=== PATIENT | female | born 1970 | race Caucasian/White ===

== ENCOUNTER 2018-01-24 17:36 | Emergency (ER) | payer SELFPAY ==
[2018-01-24] MEDS ORDERED: Acetaminophen/HYDROcodone 325-5 MG Tab PO ONE (18:14)
--- NOTE | 2018-01-24 18:29 | EDM.PDOC ---
<Sandra Membreno - Last Filed: 01/24/18 18:42> ED HPI GENERAL MEDICAL PROBLEM - General Chief Complaint: Bite:Animal, Insect Stated Complaint: SPIDER BITE ON FINGER Time Seen by Provider: 01/24/18 17:54 Source of Information: Reports: Patient History Limitations: Reports: No Limitations - History of Present Illness INITIAL COMMENTS - FREE TEXT/NARRATIVE: Patient is a 47-year-old female who presents to the ED with a left finger infection. Patient suspects she was bitten on the left index finger by a spider. She woke up Tuesday morning and noticed a pimple-like lesion on her finger. On Tuesday she reports her hand was red, swollen, and very painful. She went into the walk-in clinic and was initially prescribed cephalexin. On Tuesday , patient states the swelling had resolved, but was not improving as much as she had hoped. She again went into the clinic and had her antibiotic switched to Bactrim. Tonight she states that it is painful, sensitive to touch, and localized swelling and redness to just the finger between the dorsal PIP and MIP joint. Patient reports having GI upset with the cephalexin but that has resolved since stopping the medication. Denies fever. Left 2-Index finger Pain Score (Numeric/FACES): 6 - Related Data Allergies Allergy/AdvReac Type Severity Reaction Status Date / Time No Known Allergies Allergy Verified 01/24/18 17:47 Home Meds: Home Meds Doxycycline [Vibramycin] 100 mg PO BID #20 tab 01/24/18 [Rx] Naproxen 500 mg PO BID PRN 01/24/18 [History] Sulfamethoxazole/Trimethoprim [Bactrim 400-80 MG] 1 tab PO BID 01/24/18 [History ] Past Medical History - Past Health History Medical/Surgical History: Denies Medical/Surgical History [id number] APPLI[employer] History: Reports: Social & Family History - Family History Family Medical History: Noncontributory - Tobacco Use Smoking Status *Q: Never Smoker - Recreational Drug Use Recreational Drug Use: No ED ROS GENERAL - Review of Systems Constitutional: Denies: Fever, Chills, Malaise Musculoskeletal: Reports: Other (Left index finger pain and swelling) Skin: Reports: Erythema (left index finger), Lesions (left index finger between dorsal PIP and MIP joint) ED EXAM, ANIMAL BITE - Physical Exam Exam Limited By: No Limitations General Appearance: Alert, WD/WN, No Apparent Distress Extremities: Normal Capillary Refill, Increased Warmth (left index finger lesion ), Redness (left index finger lesion), Other (left index finger erythema and edema between PIP and MIP joint) Course - Vital Signs Last Recorded V/S: Last Vital Signs Temp 97.7 F 01/24/18 17:44 Pulse 80 01/24/18 17:44 Resp 17 01/24/18 17:44 BP 131/90 01/24/18 17:44 Pulse Ox 99 01/24/18 17:44 - Orders/Labs/Meds Meds: Medications Discontinued Medications Generic Name Dose Route Start Last Admin Trade Name Freq PRN Reason Stop Dose Admin Hydrocodone Bitart/Acetaminophen 1 tab 01/24/18 18:14 01/24/18 18:27 [place] 325-5 Mg PO 01/24/18 18:15 Not Given ONETIME ONE Departure - Departure Disposition: Home, Self-Care 01 Clinical Impression: Finger infection - Discharge Information Prescriptions: Doxycycline [Vibramycin] 100 mg PO BID #20 tab Instructions: Fingertip Infection Referrals: PCP,None [Primary Care Provider] - Forms: ED Department Discharge, ED Return to Work/School Form Additional Instructions: Continue the Bactrim antibiotic prescribed yesterday, tablet twice daily until gone. In addition I would like to have you start taking doxycycline 100 mg twice daily for 10 days until gone. Be very careful to avoid sunlight as best you can when taking the doxycycline as that can cause a photosensitivity reaction. Also warm soaks in warm soapy water about 4 times daily will help that clear more quickly. You may alternate ibuprofen and Tylenol as needed for discomfort. Have rechecked if not much better within 3 to 5 days as expected. <Alban Pride - Last Filed: 01/26/18 17:19> ED ROS GENERAL - Review of Systems Review Of Systems: See Below ED EXAM, ANIMAL BITE - Physical Exam Exam: See Below Course - Re-Assessments/Exams Free Text/Narrative Re-Assessment/Exam: 01/24/18 18:57 initial hx and exam was done by RAJEEV Umaña student. I agree with hx and exam as documented. I have also examined patient. Departure - Departure Time of Disposition: 18:55 Condition: Fair
== END 2018-01-24 19:20 | disposition home or self-care (01) ==
LOC: JD.ED 17:36
DX: L08.9 Local infection of the skin and subcutaneous tissue, unspecified (principal)
CPT/HCPCS: 10060; 99283-25

== ENCOUNTER 2019-10-15 13:19 | Emergency (ER) | payer SELFPAY ==
--- NOTE | 2019-10-15 13:42 | EDM.PDOC ---
ED HPI GENERAL MEDICAL PROBLEM - General Chief Complaint: Bite:Animal, Insect Stated Complaint: SPIDER BITE ON LEG Time Seen by Provider: 10/15/19 13:41 Source of Information: Reports: Patient History Limitations: Reports: No Limitations - History of Present Illness Onset: Sudden Duration: Day(s):, Getting Worse Location: Reports: Lower Extremity, Right Quality: Reports: Ache, Sharp Improves with: Reports: None Worsens with: Reports: None Associated Symptoms: Reports: Nausea/Vomiting (Patient presents with a red spot on her right leg where her tattoo is. Just noticed it to where it is getting more tender warm red and feels making her nauseated, no fevers chills or sweats however. She had "spider bites in the past. She had one on her finger that she called was a brown recluse spider bite although looks like more of a abscess. Patient has an allergy to sulfa. No history of underlying diabetes or hepatitis or immune dysfunction. 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 Just noticed it to where it is getting more tender warm red and feels making her nauseated, no fevers chills or sweats however. She had "spider bites in the past. She had one on her finger that she called was a brown recluse spider bite although looks like more of a abscess. Patient has an allergy to sulfa. No history of underlying diabetes or hepatitis or immune dysfunction. No red streaking, no discharge or pus, no injury.) Constitutional: Denies: Fever, Chills, Night Sweats, Diaphoresis Respiratory: Reports: No Symptoms Cardiovascular: Reports: No Symptoms GI/Abdominal: Reports: Nausea. Denies: Diarrhea, Vomiting Musculoskeletal: Denies: Joint Pain, Joint Swelling, Muscle Pain Skin: Reports: Rash, Erythema, Wound Neurological: Reports: No Symptoms Psychiatric: Reports: No Symptoms ED EXAM, ANIMAL BITE - Physical Exam Exam: See Below Exam Limited By: No Limitations General Appearance: Alert, WD/WN, No Apparent Distress Peripheral Pulses: 2+: Posterior Tibial (L), Posterior Tibial (R), Dorsalis Pedis (L), Dorsalis Pedis (R) Extremities: No Pedal Edema, Normal Capillary Refill, Leg Pain Neurological: Alert, Oriented, CN II-XII Intact Psychiatric: Normal Affect Skin Exam: Tattoo(s) Lymphatic: No Adenopathy (Right leg where the area of her tattoo demonstrates a very small area of punctate scratch, area surrounding erythema, no induration or fluctuance. No red streaking noted. No joint involvement noted. Area is about the size of a quarter.) Course - Vital Signs Last Recorded V/S: Last Vital Signs Temp 98.3 F 10/15/19 13:31 Pulse 90 10/15/19 13:31 Resp 18 10/15/19 13:31 BP 129/94 H 10/15/19 13:31 Pulse Ox 100 10/15/19 13:31 - Re-Assessments/Exams Free Text/Narrative Re-Assessment/Exam: 10/15/19 14:32 Examination, bedside ultrasound is negative for any abscess or pocket. Underlying the cellulitis. Will treat with Keflex, she has allergy to sulfa, warm moist heat, Epsom salts soaks, return if any increasing pain swelling or pus, may need reexamination if is not better in the next 48 to 72 hours. Off work tomorrow if any pain, return precautions given. Departure - Departure Time of Disposition: 14:32 Disposition: Home, Self-Care 01 Condition: Good Clinical Impression: Cellulitis Qualifiers: Site of cellulitis: extremity Site of cellulitis of extremity: lower extremity Laterality: right Qualified Code(s): L03.115 - Cellulitis of right lower limb - Discharge Information *PRESCRIPTION DRUG MONITORING PROGRAM REVIEWED*: Not Applicable Instructions: Cellulitis, Adult, [id number] Referrals: PCP,None [Primary Care Provider] - Forms: ED Department Discharge, ED Return to Work/School Form Additional Instructions: Recheck evaluate in 2 to 3 days, try to elevate, warm moist heat, Epsom salt soaks, take antibiotics as directed 3 times a day. Return if any increasing swelling, red streaks, fevers, pus, worse. Recommend off work tomorrow if any increasing pain or persistence. Sepsis Event Note - Evaluation Sepsis Screening Result: No Definite Risk - Focused Exam Vital Signs: Vital Signs Temp Pulse Resp BP Pulse Ox 10/15/19 13:31 98.3 F 90 18 129/94 H 100 Date Exam was Performed: 10/15/19 Time Exam was Performed: 14:29
== END 2019-10-15 14:40 | disposition home or self-care (01) ==
LOC: JD.ED 13:19
DX: L03.115 Cellulitis of right lower limb (principal)
CPT/HCPCS: 99282; 99283

== ENCOUNTER 2021-06-29 12:00 | Emergency (ER) | payer BC ==
--- NOTE | 2021-06-29 12:47 | EDM.PDOC ---
ED HPI GENERAL MEDICAL PROBLEM - General Chief Complaint: General Stated Complaint: COVID+ \\BODYACHE\\WEAKNESS Time Seen by Provider: 06/29/21 12:15 - History of Present Illness INITIAL COMMENTS - FREE TEXT/NARRATIVE: 50-year-old female presents the emergency department with complaints of Covid symptoms. She states she tested positive for Covid on 06/20/2021 and received monoclonal antibodies at that time. She states she feels as though she is not getting any better as she still has body aches and nausea without vomiting. She states that she also complains of a "metallic" taste in her mouth. She states that she is tired of feeling "crappy". Patient states she has been taking Tylenol and ibuprofen for the discomfort and is able to drink however has not been eating much of anything. 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 ED EXAM, GENERAL - Physical Exam Exam: See Below Exam Limited By: No Limitations General Appearance: Alert, WD/WN, No Apparent Distress Ears: Normal External Exam, Hearing Grossly Normal Nose: Normal Inspection Throat/Mouth: Normal Inspection, Normal Lips, Normal Voice, No Airway Compromise Head: Atraumatic, Normocephalic Neck: Normal Inspection, Supple Respiratory/Chest: No Respiratory Distress, No Accessory Muscle Use Cardiovascular: Normal Peripheral Pulses, Regular Rate, Rhythm GI/Abdominal: No Distention (Female) Exam: Deferred Rectal (Female) Exam: Deferred Back Exam: Normal Inspection Extremities: Normal Inspection Neurological: Alert, Oriented, Normal Cognition Psychiatric: Normal Affect, Normal Mood Skin Exam: Warm, Dry, Intact, Normal Color, No Rash Lymphatic: No Adenopathy Course - Vital Signs Text/Narrative:: As stated above, patient presents with generalized body discomfort due to Covid as well as nausea without vomiting. Physical exam is unremarkable. Patient is hemodynamically stable at the time of my exam with O2 saturations at 98% on room air. At this time I do not feel any further work-up is warranted. She has been encouraged to continue drinking fluids and getting plenty rest. She may continue to alternate Tylenol with ibuprofen every 4 hours as needed for body aches. We will send her prescription for Zofran ODT to be taken every 6 hours as needed for nausea. I have encouraged her that this will take time to resolve and that she just continues to treat symptomatically. Last Recorded V/S: Last Vital Signs Temp 97.9 F 06/29/21 12:40 Pulse 94 06/29/21 12:40 Resp 18 06/29/21 12:40 BP 138/83 06/29/21 12:40 Pulse Ox 98 06/29/21 12:40 Departure - Departure Time of Disposition: 13:15 Disposition: Home, Self-Care 01 Condition: Good Clinical Impression: COVID-19 - Discharge Information Prescriptions: Ondansetron [Zofran ODT] 4 mg PO Q6H PRN #12 tab.dis PRN Reason: Nausea/Vomiting Instructions: 10 Things You Can Do to Manage Your COVID-19 Symptoms at Home - [facility]– [place] (01/16/2021) Referrals: PCP,None [Primary Care Provider] - Forms: ED Department Discharge Additional Instructions: You are seen in the emergency department today with complaints of body aches and nausea without vomiting due to Covid. I do not feel any testing of any kind is warranted at this time. Recommend that you continue alternating Tylenol with ibuprofen every 4 hours as needed for body aches. Continue to get plenty of rest and drink plenty of fluids. I have sent prescription for nausea medication called Zofran ODT to your pharmacy. This will help to relieve nausea and hopefully allow you to eat. Place the tablet under your tongue and allow it to dissolve and then wait approximately 30 minutes for it to take full effect prior to eating or drinking. You may also attempt to drink protein shakes to keep up your nutrition as well. Should your condition worsen or change, do not hesitate returning to emergency department. Sepsis Event Note (ED) - Focused Exam Vital Signs: Vital Signs Temp Pulse Resp BP Pulse Ox 06/29/21 12:40 97.9 F 94 18 138/83 98
== END 2021-06-29 13:32 | disposition home or self-care (01) ==
LOC: JD.ED 12:00
DX: U07.1 COVID-19 (principal)
CPT/HCPCS: 99283

== ENCOUNTER 2022-09-29 13:56 | Emergency (ER) | payer BC | END 2022-09-29 15:19 | disposition home or self-care (01) | LOC: JD.ED 13:56 | DX: M54.6 Pain in thoracic spine (principal); E66.9 Obesity, unspecified; Z86.16 Personal history of COVID-19; Z87.891 Personal history of nicotine dependence | CPT/HCPCS: 99283 ==